=== PATIENT | female | born 1975 | race Two or more races ===

== ENCOUNTER 2018-08-15 22:24 | Emergency (ER) | payer OTHER ==
[~2018-08-15] VITALS: Ht 167.6 cm; Wt 89.8 kg
--- NOTE | 2018-08-15 22:40 | NUR ---
Brought in by [facility] to ER Room 5A for witnessed syncopal episode. Pt accompanied by family members. Awake, alert, oriented and talkative.
[2018-08-15] MEDS ORDERED: ACETAMINOPHEN ES 500 MG TABLET PO ONE (23:00)
[2018-08-15] MEDS ORDERED: ACETAMINOPHEN ES 500 MG TABLET ONE (23:01)
--- NOTE | 2018-08-15 23:02 | NUR ---
Tylenol given for right knee pain.
[2018-08-15 23:07] LABS: BASOPHILS % (AUTO) 0.3 % (0.0-2.0); EOSINOPHILS # (AUTO) 0.1 K/uL (0.0-0.7); EOSINOPHILS % (AUTO) 1.4 % (0.0-7.0); HEMATOCRIT 36.8 % (31.2-41.9); HEMOGLOBIN 12.3 g/dL (10.9-14.3); LYMPHOCYTES # (AUTO) 0.9 K/uL (20.0-40.0); LYMPHOCYTES % (AUTO) 16.9 % (20.5-51.5); MEAN CORPUSCULAR HEMOGLOBIN 27.9 uug (24.7-32.8); MEAN CORPUSCULAR HGB CONC 33 g/dL (32.3-35.6); MEAN CORPUSCULAR VOLUME 83.3 fL (75.5-95.3); MONOCYTES # (AUTO) 0.5 K/uL (2.0-10.0); MONOCYTES % (AUTO) 9.8 % (0.0-11.0); NEUTROPHILS # (AUTO) 3.7 K/uL (1.8-8.9); NEUTROPHILS % (AUTO) 71.6 % (38.5-71.5); PLATELET COUNT (AUTO) 184 K/uL (179-408); RED BLOOD CELL COUNT(AUTO) 4.42 MIL/uL (3.63-4.92); WHITE BLOOD COUNT (AUTO) 5.2 K/uL (3.8-11.8)
[2018-08-15 23:11] LABS: CREATININE 0.6 mg/dL (0.6-1.3); POTASSIUM 3.9 mmol/L (3.5-5.1)
[2018-08-15 23:26] LABS: BILIRUBIN,DIRECT 0.1 mg/dL (0.0-0.2); BILIRUBIN,TOTAL 0.2 mg/dL (0.2-1.0); TOTAL PROTEIN, SERUM 6.9 g/dL (6.4-8.2)
--- NOTE | 2018-08-15 23:50 | NUR ---
Right knee immobilizer placed by button sawyer after adequate explanations.
--- NOTE | 2018-08-16 01:00 | NUR ---
Pt sleeping with mother at bedside. In no apparent acute distress.
--- NOTE | 2018-08-16 02:00 | NUR ---
Repeat lab work drawn. Assisted to bathroom ambulatory with right knee immobilizer on. Voided large amount of clear yellow urine. Back to [facility] and made comfortable.
--- NOTE | 2018-08-16 03:05 | NUR ---
bologna maker at bedside instructing pt on care and proper use of crutches; pt expresses adequate understanding. Brother called for pt pickup.
--- NOTE | 2018-08-16 03:10 | NUR ---
Patient discharged to home in stable conditon accompanied by mother and brother. Written and verbal after care instructions given. Prescription given as well as copies of medical records. Patient verbalizes understanding of instructions.
[2018-08-16 03:34] VITALS: BP 117/64
== END 2018-08-16 03:10 | disposition home or self-care (01) ==
LOC: ER 22:26
DX: S40.012A Contusion of left shoulder, initial encounter (principal); S80.01XA Contusion of right knee, initial encounter; R55 Syncope and collapse; W22.01XA Walked into wall, initial encounter; Y93.89 Activity, other specified; Y92.89 Other specified places as the place of occurrence of the external cause; Y99.8 Other external cause status
CPT/HCPCS: 36415; 70030-TC; 73030; 85025; 93005; A4663; A9150